=== PATIENT | male | born 1960 | race Caucasian/White ===

== ENCOUNTER → 2019-11-27 08:37 | Outpatient (CLI) | payer BC ==
[2019-11-27 09:27] LABS: BASOPHILS 0.4 % (0-2); HEMATOCRIT 43.4 % (42.0-54.0); HEMOGLOBIN 14.8 g/dL (13.5-17.5); IMMATURE GRANULOCYTES 0.1 % (0-5); MCHC 34.1 g/dL (31.0-37.0); MCV 96.7 fL (80.0-100.0); MEAN PLATELET VOLUME 8.9 fL (7.4-10.4); MONOCYTES 9.6 % (2-11); NEUTROPHILS 58.9 % (40-80); PLATELET COUNT 189 10x3/uL (130-400); RBC 4.49 10x6/uL (4.20-6.10); RDW 12.2 % (11.5-14.5); WBC 6.9 10x3/uL (4.8-10.8)
[2019-11-27 09:52] LABS: APTT 30.3 SECONDS (22.8-39.4); INR 1.02 (0.85-1.17); PROTIME 12.9 SECONDS (11.6-15.0)
[2019-11-27 09:55] LABS: ALBUMIN 3.8 g/dL (3.4-5.0); ALKALINE PHOSPHATASE 76 U/L (46-116); ALT (SGPT) 230 U/L (10-68); BILIRUBIN - DIRECT 0.28 mg/dL (0.00-0.30); BILIRUBIN - INDIRECT 0.59 mg/dL (0.00-1.00); BILIRUBIN - TOTAL 0.87 mg/dL (0.2-1.3); CALC OSMOLALITY 271 mosm/kg (275-300); CALCIUM 9.4 mg/dL (8.5-10.1); CARBON DIOXIDE 28.2 mmol/L (21.0-32.0); CHLORIDE - SERUM 98 mmol/L (98-107); CHOL - HDL RATIO 4.4 ratio (2.3-4.9); CHOLESTEROL, TOTAL 205 mg/dL (0-200); FERRITIN 683 ng/mL (3-244); GAMMA GT 231 U/L (5-85); GLUCOSE 96 mg/dL (74-106); HDL CHOLESTEROL 47 mg/dL (32-96); LDL CHOLESTEROL 120 mg/dL (0-100); LDL-HDL RATIO 2.6 ratio (1.5-3.5); POTASSIUM - SERUM 3.9 mmol/L (3.5-5.1); PROTEIN - SERUM 7.6 g/dL (6.4-8.2); SODIUM 136 mmol/L (136-145); TRIGLYCERIDE 191 mg/dL (30-200); UREA NITROGEN 13 mg/dL (7-18); eGFR NON AFRICAN AMERICAN 81 mL/min (90-120)
[2019-11-27 10:11] LABS: % SATURATION 39 % (15-55); IRON 162 ug/dl (35-150); TOTAL IRON BIND CAPACITY 412 ug/dl (260-445); UNSAT IRON BIND CAPACITY 250 ug/dl (150-375)
[2019-11-28 07:11] LABS: HAPTOGLOBIN 225 mg/dL (29-370)
[2019-11-29 07:08] LABS: HEPATITIS C ANTIBODY <0.1 S/CO RAT (0.0-0.9)
[2019-11-29 11:09] LABS: ANA REFLEX - DIRECT Negative (Negative)
[2019-11-30 13:09] LABS: SMOOTH MUSCLE ABS (ACTIN) 25 Units (0-19)
[2019-11-30 14:09] LABS: MITOCHONDRIAL ANTIBODY <20.0 Units (0.0-20.0)
== END | disposition home or self-care (01) ==
LOC: D.US 08:37
PROVIDERS: ATTEND Internal Medicine Gastroenterology
DX: K76.0 Fatty (change of) liver, not elsewhere classified (principal)

== ENCOUNTER 2019-12-28 06:33 | Outpatient (CLI) | payer BC ==
[~2019-12-28] VITALS: Ht 175.3 cm; Wt 111.4 kg
[2019-12-28 07:06] LABS: BASOPHILS 0.2 % (0-2); EOSINOPHILS 0.9 % (0-7); HEMATOCRIT 38.4 % (42.0-54.0); HEMOGLOBIN 13.3 g/dL (13.5-17.5); IMMATURE GRANULOCYTES 0.2 % (0-5); LYMPHOCYTES 36.3 % (15-50); MCH 32.6 pg (26.0-34.0); MCHC 34.6 g/dL (31.0-37.0); MCV 94.1 fL (80.0-100.0); MONOCYTES 12.4 % (2-11); RBC 4.08 10x6/uL (4.20-6.10); RDW 11.8 % (11.5-14.5); WBC 5.8 10x3/uL (4.8-10.8)
[2019-12-28 07:12] LABS: PLATELET COUNT 263 10x3/uL (130-400)
[2019-12-28 07:13] LABS: ANION GAP 11.6 mmol/L (8-16); CALCIUM 8.7 mg/dL (8.5-10.1); CARBON DIOXIDE 29.9 mmol/L (21.0-32.0); CREATININE - SERUM 1.1 mg/dL (0.6-1.3); POTASSIUM - SERUM 3.5 mmol/L (3.5-5.1)
[2019-12-28 07:14] LABS: INR 0.91 (0.85-1.17); PROTIME 12.3 SECONDS (11.6-15.0)
[2019-12-28 07:15] LABS: APTT 27.3 SECONDS (22.8-39.4)
[2019-12-28] MEDS ORDERED: COZAAR25 MG PO (07:37)
[2019-12-28] MEDS ORDERED: OMEPRAZOLE20 M1 PO (07:38)
[2019-12-28] MEDS ORDERED: WELCHOL625 MG PO (07:39)
[2019-12-28] MEDS ORDERED: TRIAMTERENE-HC1 EAC6 PO (07:40)
[2019-12-28] MEDS ORDERED: SINGULAIR10 MG PO (07:41)
[2019-12-28] MEDS ORDERED: CELEXA10 MG PO (07:41)
[2019-12-28] MEDS ORDERED: FISH OIL 1,0001 CA1 PO (07:42)
[2019-12-28] MEDS ORDERED: VITAMIN D10000 UNI1 PO (07:42)
[2019-12-28 08:04] VITALS: BP 120/78; Ht 175.3 cm; Wt 111.4 kg
== END 2019-12-28 13:20 | disposition home or self-care (01) ==
LOC: D.SP 06:33 → D.CT 09:00 → D.SP 09:00
PROVIDERS: Specialist; ATTEND Internal Medicine Gastroenterology
DX: R76.0 Raised antibody titer (principal); R94.5 Abnormal results of liver function studies; K22.70 Barrett's esophagus without dysplasia

== ENCOUNTER 2020-04-16 12:21 | Day surgery (SDC) | payer BC ==
[2020-04-14 09:19] LABS: ANION GAP 10.1 mmol/L (8-16); CALCIUM 9.2 mg/dL (8.5-10.1); CARBON DIOXIDE 29.7 mmol/L (21.0-32.0); CREATININE - SERUM 1.1 mg/dL (0.6-1.3); POTASSIUM - SERUM 3.8 mmol/L (3.5-5.1)
[2020-04-14 09:22] LABS: HEMATOCRIT 40.9 % (42.0-54.0); MCH 32.8 pg (26.0-34.0); MCHC 34.2 g/dL (31.0-37.0); MCV 95.8 fL (80.0-100.0); MEAN PLATELET VOLUME 9.3 fL (7.4-10.4); RBC 4.27 10x6/uL (4.20-6.10); RDW 11.8 % (11.5-14.5); WBC 5.8 10x3/uL (4.8-10.8)
[~2020-04-16] VITALS: Ht 177.8 cm; Wt 108.9 kg
[~2020-04-16 12:21] MED LIST: AMBIEN10 MG PO; BAYER CHEWABLE81 MG PO; CELEXA10 MG PO; CETIRIZINE HCL5 MG PO; COZAAR25 MG PO; FISH OIL 1,0001 CA1 PO; OMEPRAZOLE20 M1 PO; SINGULAIR10 MG PO; TRIAMTERENE-HC1 EAC6 PO; VITAMIN D10000 UNI1 PO; WELCHOL625 MG PO
[2020-04-16 13:00] VITALS: BP 138/81; Ht 177.8 cm; Wt 108.9 kg
[2020-04-16] MEDS ORDERED: PERCOCET 5-3251 TAB PO (14:54)
[2020-04-16 18:10] VITALS: BP 133/81
--- NOTE | 2020-04-16 20:37 | NUR ---
PT DC HOME WITH SPOUSE. PT STABLE. VITALS STABLE. PT HAS VOIDED AND HELD DOWN FOOD AND DRINK. NO N/V. PT STATES NO PAIN AT THIS TIME. GIVEN DC INSTRUCTIONS AND SCRIPT.
--- NOTE | 2020-04-17 07:55 | OP ---
PATIENT NAME: RAUDEL DIANE MEDICAL RECORD: [id number] :60 LOCATION:[facility] ADMISSION DATE: SURGEON: JOEL TORRES DO DATE OF OPERATION: 04/16/2020 PROCEDURE PERFORMED: Right shoulder arthroscopy with distal clavicle excision and subacromial decompression, labral debridement, biceps tendinosis and rotator cuff repair with Regeneten. PREOPERATIVE DIAGNOSES: Right shoulder rotator cuff tear, labral tear, acromioclavicular joint arthritis and subacromial impingement. POSTOPERATIVE DIAGNOSES: Right shoulder rotator cuff tear, labral tear, acromioclavicular joint arthritis and subacromial impingement. INDICATIONS: Ms. Diane is a 60-year-old male who has had severe right shoulder pain for quite some time. He tried to deal with the pain and had an MRI, which showed the above findings. He wanted something done surgically and was sent to me, was informed of the risks including infection, bleeding, damage to nerves and vessels, need for further surgery, retear of the rotator cuff, continued pain, frozen shoulder and he signed the consent. SURGEON: Joel Torres DO DESCRIPTION OF THE PROCEDURE: The patient was taken to the operative suite after given a block by anesthesia in the preoperative area, given 900 mg of clindamycin, laid in the supine position, given general anesthetic and intubated. He was then placed in the left lateral decubitus position with the right shoulder up. The right shoulder was then prepped and draped in sterile fashion. A timeout was performed and everyone was in agreement with correct side, site, patient and procedure. The procedure began with me putting an 18-gauge spinal needle into the shoulder joint through the posterior portal inflating it with 60 mL of normal saline to an 11-blade scalpel. We then established posterior portal and then entered the shoulder joint. The anterior portal was then established with an 18-gauge spinal needle and 11-blade scalpel. A trocar was brought in and then a burner inspected the labrum and there was a large SLAP tear. Long head of the biceps tendon was then cut, inspected. Subscapularis tendon was in good repair as well as the infraspinatus. There was a tear in the supraspinatus on the articular side where there was 75% torn. We then debrided the labrum after cutting the biceps tendon with a burner and then went to the subacromial space and established a lateral portal with an 18-guage spinal needle with an 11-blade scalpel. The subacromial decompression and removed part of the distal lateral acromion with a shaver. Then, through the anterior portal removed part of the distal clavicle opening up the AC joint, 7 mm proximally. The scope was then put back into shoulder and marked the articular-sided tear of the rotator cuff with an 18-gauge spinal needle and then scope was taken out to the shoulder and then opened the lateral portal, extended with 15 blade scalpel. Careful dissection was made down to the rotator cuff tear. This cleaned off and then the medial anchor, 5.5 Quattro PEEK double anchor, was put in and that 4 sutures through the rotator cuff tendon and brought over to a lateral row, then placed the Regeneten patch on top of that and stapled it into place, first medially and then laterally with bone anchors. We then addressed the biceps tenodesis portion where I made a small incision on the anterior humerus and made careful dissection to the long head of the biceps tendon, pulled out through the incision, putting unicortical hole in the OPERATIVE REPORT [id number] RAUDEL DIANE, used a 2.9 JuggerLoc bicep fixation loop and loop and the biceps tendon through that and cinched it down to the humerus. This site was then irrigated outside in the rotator cuff and then inside were closed by Yassine Caldwell, certified medical asst, and Coy Gruber, surgical for assist student, with 2-0 Vicryl in inverted interrupted fashion, 4-0 Monocryl running on the skin. The anterior and posterior portal sites were then closed with 4-0 Monocryl in an inverted interrupted fashion. The wounds have been dressed with Dermabond, Telfa and Tegaderm. He was awakened and taken to recovery in stable condition. BLOOD LOSS: Minimal. COMPLICATIONS: None. TRANSINT:[id number] Voice Confirmation ID: [id number] DOCUMENT ID: [id number] JOEL TORRES DO at 0755 CC: [id number] DICTATION DATE: 04/16/20 170 COMPOSITION TILE LAYER: 04/17/20 0333 [facility] 04/16/20 [facility] [address] [place] [address]
== END 2020-04-16 20:39 | disposition home or self-care (01) ==
LOC: D.OPS 12:21 → D.MS 17:49 → D.OPS 20:39
PROVIDERS: Anesthesiology; ATTEND Orthopaedic Surgery
DX: M75.111 Incomplete rotator cuff tear or rupture of right shoulder, not specified as traumatic (principal); S43.401A Unspecified sprain of right shoulder joint, initial encounter; M19.011 Primary osteoarthritis, right shoulder; M25.811 Other specified joint disorders, right shoulder; K21.9 Gastro-esophageal reflux disease without esophagitis; X58.XXXA Exposure to other specified factors, initial encounter

== ENCOUNTER → 2020-05-27 08:07 | Outpatient (CLI) | payer BC ==
[2020-04-16 13:00] VITALS: BMI 34.5
[~2020-05-27 08:07] MED LIST changes: +PERCOCET 5-3251 TAB PO
[2020-05-27 09:04] LABS: ALBUMIN 3.7 g/dL (3.4-5.0); BILIRUBIN - DIRECT 0.13 mg/dL (0.00-0.30); BILIRUBIN - INDIRECT 0.36 mg/dL (0.00-1.00); BILIRUBIN - TOTAL 0.49 mg/dL (0.2-1.3); PROTEIN - SERUM 7.3 g/dL (6.4-8.2)
== END | disposition home or self-care (01) ==
LOC: D.US 01-28 09:00 → D.LAB 01-28 09:30
PROVIDERS: ATTEND Internal Medicine Gastroenterology
DX: K76.0 Fatty (change of) liver, not elsewhere classified (principal)

== ENCOUNTER → 2020-06-12 08:26 | Outpatient (CLI) | payer BC ==
[2020-04-16 13:00] VITALS: BMI 34.5
== END | disposition home or self-care (01) ==
LOC: D.MRI 08:26
PROVIDERS: ATTEND Internal Medicine Gastroenterology
DX: R93.89 Abnormal findings on diagnostic imaging of other specified body structures (principal); K83.8 Other specified diseases of biliary tract

== ENCOUNTER → 2021-04-30 08:42 | Outpatient (CLI) | payer BC ==
[2020-04-16 13:00] VITALS: BMI 34.5
== END | disposition home or self-care (01) ==
LOC: D.US 04-28 10:00
PROVIDERS: ATTEND Internal Medicine Gastroenterology
DX: K76.0 Fatty (change of) liver, not elsewhere classified (principal)